=== PATIENT | female | born 1965 | race Caucasian/White ===

== ENCOUNTER 2025-05-09 13:34 | Outpatient (CLI) | payer OTHER | END 2025-05-09 13:45 | disposition home or self-care (01) | LOC: SONOGRAMA 13:34 | PROVIDERS: ATTEND Pathology Anatomic Pathology & Clinical Pathology | DX: D34 Benign neoplasm of thyroid gland (principal); E06.3 Autoimmune thyroiditis; E04.2 Nontoxic multinodular goiter ==